=== PATIENT | male | born 1970 | race Caucasian/White ===

== ENCOUNTER 2022-09-21 07:56 | Emergency (ER) | payer SELFPAY ==
[2022-09-21 08:04] VITALS: BP 187/114; PULSE 88; RESP 22; TEMP 36.5; O2SAT 98; BMI 26.6
--- NOTE | 2022-09-21 08:11 | ECG_ITS ---
The [facility] Test Date: 2022-09-21 Pat Name: CONSTANCE RUTH Department: Room: - Gender: Male Ux Researcher: : 1970 Requested By: Order Number: [id number] Reading MD: CRISTY SINGH Measurements Intervals [place] Rate: 74 P: 4 AK: 146 QRS: 41 QRSD: 94 T: 46 QT: 416 QTc: 444 Interpretive Statements 1100 Sinus rhythm 9110 normal ECG No previous ECG available for comparison Electronically Signed On 09-22-2022 7:06:46 EDT by CRISTY SINGH
[2022-09-21] MEDS: 0.9 % SODIUM CHLORIDE 1,000 ML 1000 ML IV (08:24)
[2022-09-21] MEDS: FAMOTIDINE/PF 20 MG/2 ML VIAL IV (08:25)
[2022-09-21] MEDS: ONDANSETRON PF 4 MG/2 ML VIAL IV (08:25)
[2022-09-21] MEDS: KETOROLAC TROMETHAMINE 30 MG/ML VIAL 15 MG IVP (08:25)
--- NOTE | 2022-09-21 08:28 | ED.GENADUL1 ---
HPI - General Adult General Chief complaint: Abdominal Pain Stated complaint: vomiting/diarrhea Time Seen by Provider: 09/21/22 08:10 Source: patient Mode of arrival: walk-in History of Present Illness HPI narrative: The patient is coming to the ER with epigastric pain associated with nausea vomiting and diarrhea since almost 3 days, no other family members with similar symptoms the patient has not been able to keep anything down He denies having any regular abdominal pain after eating, he also mentioned that he have no fever no chills no cough no other complaints Related Data Previous Rx's Medication Instructions Recorded famotidine 20 mg tablet (Pepcid) 20 mg PO BID #10 tabs 09/21/22 ondansetron HCl 4 mg tablet 4 mg PO Q8H 24 hours #3 tabs 09/21/22 pantoprazole 40 mg tablet,delayed 40 mg PO DAILY #30 tabs 09/21/22 release (Protonix) Allergies Allergy/AdvReac Type Severity Reaction Status Date / Time acetaminophen [From Percocet] AdvReac Severe Vomiting Verified 09/21/22 08:37 codeine AdvReac Severe Vomiting Verified 09/21/22 08:37 hydrocodone [From Vicodin] AdvReac Severe Verified 09/21/22 08:37 oxycodone [From Percocet] AdvReac Severe Vomiting Verified 09/21/22 08:37 Review of Systems ROS Status of ROS 10 or more systems reviewed and unremarkable except as noted in history and below [facility] Medical History (Updated 09/21/22 @ 09:53 by Tricia Aly MD) Surgical History (Updated 09/21/22 @ 08:38 by Carlos Sheehan) Exam Narrative Exam Narrative: Nurses notes and vital signs reviewed and patient is not hypoxic. General: Well-appearing and in no apparent distress. Skin: Warm, dry, no pallor noted. No rash. Head: Normocephalic, atraumatic. Neck: Supple, non-tender. Eye: Pupils are equal, round and EOMI. No scleral icterus. Ears, Nose, Mouth, and Throat: TM are clear, no nasal mucosal hypertrophy. Oral mucosa is moist, no posterior oropharynx erythema, uvula is mid-line Cardiovascular: Regular Rate and Rhythm the patient does have a murmur that is systolic at the mitral area Respiratory: No accessory muscle use or respiratory distress. Lungs are clear to auscultation, no wheezing, rales or rhonchi Chest Wall: no tenderness Back: No midline thoracic or lumbar vertebral tenderness. No CVA tenderness Musculoskeletal: normal ROM, no calf or popliteal tenderness, no lower extremity edema/swelling GI: Abdomen is soft, non-distended. Normal bowel sounds. No masses appreciated. No tenderness to palpation. No rebound, guarding, or rigidity noted. Neurological: A&O x4. No cranial nerve dysfunction observed. No truncal ataxia. Moves all extremities. Sensation intact. Psychiatric: Cooperative and interactive. Normal mood and affect. Constitutional Vital Signs, click to edit/add: Last Vital Signs Temp 97.7 F 09/21/22 08:04 Pulse 87 09/21/22 10:07 Resp 20 09/21/22 10:07 BP 160/84 H 09/21/22 10:07 Pulse Ox 96 09/21/22 10:07 O2 Del Method Room Air 09/21/22 08:04 Course Vital Signs Vital signs: Vital Signs Temperature 97.7 F 09/21/22 08:04 Pulse Rate 88 09/21/22 08:04 Respiratory Rate 22 09/21/22 08:04 Blood Pressure 187/114 H 09/21/22 08:04 Pulse Oximetry 98 09/21/22 08:04 Oxygen Delivery Method Room Air 09/21/22 08:04 Temperature 97.7 F 09/21/22 08:04 Pulse Rate 87 09/21/22 10:07 Respiratory Rate 20 09/21/22 10:07 Blood Pressure 160/84 H 09/21/22 10:07 Pulse Oximetry 96 09/21/22 10:07 Oxygen Delivery Method Room Air 09/21/22 08:04 Medical Decision Making [facility] Narrative Medical decision making narrative: The patient EKG showing sinus rhythm with a heart rate of [address] elevation or depression The patient CBC and chemistry showed some mild leukocytosis and the chemistry was within normal It was noted that the patient blood pressure was elevated and he had this murmur and his heart evaluation mostly at the mitral level I did explain to the patient that he have to follow-up with his primary care doctor for further evaluation of his blood pressure CAT scan of the abdomen pelvis did not show any significant acute pathology except for possible enteritis The patient was feeling much better after initial treatment he was started on Pepcid and Protonix in addition to Zofran and supportive care The patient is to follow up with primary care physician in next 2-3 days or to return to the emergency department should any of the signs or symptoms worsen or new symptoms develop. The patient agrees with the following Diagnosis and Treatment plan and the patient will be discharged home. Lab Data Labs: Lab Results 09/21/22 Range/Units 08:21 WBC 15.6 H (4.0-11.0) 10^3/uL RBC 4.77 (4.70-6.10) 10^6/uL Hgb 14.3 (14.0-18.0) g/dL Hct 41.4 L (42.0-54.0) % MCV 86.8 (80.0-94.0) fL MCH 30.0 (25.9-34.0) pg MCHC 34.5 (29.9-35.2) g/dL RDW 13.3 (11.0-15.0) % Plt Count 384 (150-450) 10^3/uL MPV 9.0 L (9.5-13.5) fL Neut % (Auto) 86.9 H (43.0-75.0) % Lymph % (Auto) 6.2 L (20.5-60.0) % Lane % (Auto) 6.0 (1.7-12.0) % Eos % (Auto) 0.1 L (0.9-7.0) % Baso % (Auto) 0.4 (0.2-2.0) % Neut # (Auto) 13.6 H (1.4-6.5) 10^3/uL Lymph # (Auto) 1.0 L (1.2-3.8) 10^3/uL Lane # (Auto) 0.9 H (0.3-0.8) 10^3/uL Eos # (Auto) 0.0 (0.0-0.7) 10^3/uL Baso # (Auto) 0.1 (0.0-0.1) 10^3/uL Abs Immat Gran (auto) 0.06 H (0.00-0.03) 10^3/uL Imm/Tot Granulo (auto) 0.4 (0.0-0.5) % Sodium 139 (136-145) mmol/L Potassium 4.0 (3.5-5.1) mmol/L Chloride 102 (98-107) mmol/L Carbon Dioxide 25.0 (21.0-32.0) mmol/L Anion Gap 16.0 BUN 12.0 (7.0-18.0) mg/dL Creatinine 0.94 (0.70-1.30) mg/dL Est GFR ( Amer) >60 (>=60) Est GFR (Non-Af Amer) >60 (>=60) BUN/Creatinine Ratio 12.8 Glucose 167 H (74-106) mg/dL Calcium 9.3 (8.5-10.1) mg/dL Total Bilirubin 0.5 (0.2-1.0) mg/dL AST 10 L (15-37) U/L ALT 17 (16-63) U/L Alkaline Phosphatase 81 (46-116) U/L Troponin I High Sens 9.3 (4.0-76.1) pg/mL Total Protein 8.5 H (6.4-8.2) g/dL Albumin 3.9 (3.4-5.0) g/dL Globulin 4.6 g/dL Albumin/Globulin Ratio 0.8 Lipase 51.0 L (73.0-393.0) U/L Discharge Plan Discharge Chief Complaint: Abdominal Pain Clinical Impression: Gastritis, Gastroenteritis Patient Disposition: Home, Self-Care Time of Disposition Decision: 09:51 Condition: Good Mode of Transportation: Private Vehicle Prescriptions / Home Meds: New famotidine [Pepcid] 20 mg tablet 20 mg PO BID Qty: 10 0RF pantoprazole [Protonix] 40 mg tablet,delayed release (DR/EC) 40 mg PO DAILY Qty: 30 0RF ondansetron HCl 4 mg tablet 4 mg PO Q8H 1 Days Qty: 3 0RF Instructions: Gastritis (ED), Gastroenteritis (ED) Stand Alone Forms: Portal Instructions Referrals: Physician,Non-Staff, MD [Primary Care Provider] - 1 week Discharge Date/Time: 09/21/22 10:12
[2022-09-21 08:31] LABS: Basophils Absolute Auto 0.1 10^3/uL (0.0-0.1); Basophils Percent Auto 0.4 % (0.2-2.0); Eosinophils Percent Auto 0.1 % (0.9-7.0); Hematocrit 41.4 % (42.0-54.0); Hemoglobin 14.3 g/dL (14.0-18.0); Immature Granulocytes Abs Auto 0.06 10^3/uL (0.00-0.03); Immature Granulocytes Pct Auto 0.4 % (0.0-0.5); Lymphocytes Percent Auto 6.2 % (20.5-60.0); Mean Corpuscular HGB Conc 34.5 g/dL (29.9-35.2); Mean Corpuscular Volume 86.8 fL (80.0-94.0); Monocytes Absolute Auto 0.9 10^3/uL (0.3-0.8); Neutrophils Absolute Auto 13.6 10^3/uL (1.4-6.5); Neutrophils Percent Auto 86.9 % (43.0-75.0); Platelet Count 384 10^3/uL (150-450); Red Blood Count 4.77 10^6/uL (4.70-6.10); Red Cell Distribution Width 13.3 % (11.0-15.0); White Blood Count 15.6 10^3/uL (4.0-11.0)
[2022-09-21 08:50] LABS: Alanine Aminotransferase 17 U/L (16-63); Albumin Globulin Ratio 0.8; Albumin Level 3.9 g/dL (3.4-5.0); Alkaline Phosphatase 81 U/L (46-116); Aspartate Amino Transferase 10 U/L (15-37); BUN Creatinine Ratio 12.8; Bilirubin Total 0.5 mg/dL (0.2-1.0); Calcium 9.3 mg/dL (8.5-10.1); Chloride 102 mmol/L (98-107); Estimated GFR (African America >60 (>=60); Estimated GFR (Non-African Ame >60 (>=60); Globulin 4.6 g/dL; Glucose 167 mg/dL (74-106); Sodium 139 mmol/L (136-145); Total Protein 8.5 g/dL (6.4-8.2)
[2022-09-21 08:52] LABS: Troponin I High Sensitivity 9.3 pg/mL (4.0-76.1)
--- NOTE | 2022-09-21 09:14 | CT_ITS ---
The [address] [address] Patient Name: CONSTANCE RUTH MRN: [id number] date: 1970 Sex: M Assigned Patient Location: ER Current Patient Location: ER Accession/Order Number: [id number] Exam Date: 09/21/2022 09:20 Report Date: 09/21/2022 09:40 At the request of: YONY BATRES Procedure: CT abdomen pelvis wo con EXAM: CT abdomen pelvis wo con HISTORY: abd pain COMPARISON: None. TECHNIQUE: Axial CT images were obtained of the abdomen and pelvis without and with intravenous contrast. Multiplanar reconstructions were performed. ABDOMEN/PELVIS FINDINGS: Lower Chest: Unremarkable. Liver: Normal nonenhanced appearance and contour. Biliary/Gallbladder: Unremarkable. Pancreas: Unremarkable. Spleen: Multiple punctate calcifications are present in the spleen, likely due to remote granulomatous disease. Adrenal Glands: Unremarkable. Kidneys: Unremarkable. Gastrointestinal/Peritoneum: There is moderate wall thickening present in a long segment of the terminal ileum with hazy fat stranding of the adjacent mesentery. There is a short segment of bowel dilation is well measuring 2.6 cm in diameter. A small volume of free fluid is present in the abdomen. The appendix is unremarkable. Vascular: Mild scattered atherosclerotic calcifications are present. Lymph Nodes: No enlarged lymph nodes by CT size criteria. Pelvic Organs: Unremarkable. Bladder: Unremarkable. Bones: No acute osseous abnormality. Soft tissues: Unremarkable. CT/CT abdomen pelvis wo con IMPRESSION: 1. Abnormal wall thickening and inflammatory changes of a long segment of the terminal ileum, possibly due to infectious or inflammatory enteritis. 2. Small volume of free fluid in the abdomen and pelvis. Electronically authenticated by: RADHA WASHINGTON Date: 09/21/2022 09:40
[2022-09-21 10:07] VITALS: BP 160/84; PULSE 87; RESP 20; O2SAT 96
== END 2022-09-21 10:12 | disposition home or self-care (01) ==
PROVIDERS: Emergency Provider Emergency Medicine
DX: K29.70 Gastritis, unspecified, without bleeding (principal); K52.9 Noninfective gastroenteritis and colitis, unspecified
CPT/HCPCS: 36415; 74176; 80053; 81003; 83690; 84484; 85025; 93005; 96374; 96375; 99285

== ENCOUNTER 2023-01-16 18:25 | Emergency (ER) | payer SELFPAY ==
[2023-01-16 18:31] VITALS: BP 127/81; PULSE 104; RESP 20; TEMP 36.6; O2SAT 96; BMI 25.1
--- NOTE | 2023-01-16 18:40 | CT_ITS ---
The [address] [address] Patient Name: CONSTANCE RUTH MRN: [id number] date: 1970 Sex: M Assigned Patient Location: ER Current Patient Location: ER Accession/Order Number: [id number] Exam Date: 01/16/2023 19:55 Report Date: 01/16/2023 20:52 At the request of: TROY LAN Procedure: CT abdomen pelvis w con EXAM: CT abdomen pelvis w con HISTORY: generalized abdominal pain COMPARISON: 09/21/2022 TECHNIQUE: CT of abdomen and pelvis with intravenous contrast. Dose reduction techniques were achieved by using automated exposure control and/or adjustment of mA and/or kV according to patient size and/or use of iterative reconstruction technique. FINDINGS: TUBES AND IMPLANTS: None. LOWER CHEST: Mild cardiomegaly. Patchy groundglass opacities with interlobular septal thickening. ABDOMEN and PELVIS ABDOMINAL WALL AND SOFT TISSUES: Unremarkable. BONES: No suspicious lesions. Multilevel degenerative changes of the spine. ARTERIES: Mild to moderate aortoiliac atherosclerosis without aneurysm VEINS: Unremarkable. LYMPH NODES: Unremarkable. PERITONEUM/ RETROPERITONEUM: Small amount of free fluid BOWEL: Severe wall thickening of the terminal ileum and distal ileum with regions of stenoses and dilatation APPENDIX: Unremarkable LIVER: No suspicious lesions within the [id number] GALLBLADDER: Unremarkable. BILE DUCTS: Not dilated SPLEEN: Calcified granulomata PANCREAS: Unremarkable. ADRENALS: Unremarkable. KIDNEYS/ URETERS: Unremarkable. REPRODUCTIVE ORGANS: Unremarkable URINARY BLADDER: Unremarkable. Contrast seen within the bladder on delayed imaging. CT/CT abdomen pelvis w con IMPRESSION: Severe wall thickening of the terminal ileum and distal ileum with regions of stenosis and dilatation concerning for inflammatory stricturing and mild associated obstruction. This most likely related to an inflammatory or infectious etiology. Small amount of free intraperitoneal fluid likely reactive. Mild cardiomegaly. Patchy groundglass opacities with interlobular septal thickening. These findings suggest mild pulmonary interstitial edema, infectious etiology can considered in the right clinical setting. Electronically authenticated by: NITESH STEEL Date: 01/16/2023 20:52
--- NOTE | 2023-01-16 18:41 | ED.ABDPAIN1 ---
HPI - Abdominal Pain General Chief Complaint: Abdominal Pain Stated Complaint: Abdominal Pain Time Seen by Provider: 01/16/23 18:36 Source: patient Mode of arrival: walk-in History of Present Illness HPI narrative: 2 days of generalized abdominal cramping associated with nausea and vomiting. No fever or chills. had similar symptoms but hers only last about 8 hours. His symptoms have persisted since onset. No urinary symptosm or flank pain. No recent injury to the abdomen, trauma or fall. No meds taken at home for pain. He said narcotics upset his stomach. Related Data Home Medications Medication Instructions Recorded Confirmed lisinopril 10 mg tablet 10 mg PO DAILY 01/16/23 01/16/23 Previous Rx's Medication Instructions Recorded famotidine 20 mg tablet (Pepcid) 20 mg PO BID #10 tabs 09/21/22 ondansetron HCl 4 mg tablet 4 mg PO Q8H 24 hours #3 tabs 09/21/22 pantoprazole 40 mg tablet,delayed 40 mg PO DAILY #30 tabs 09/21/22 release (Protonix) Allergies Allergy/AdvReac Type Severity Reaction Status Date / Time acetaminophen [From Percocet] AdvReac Severe Vomiting Verified 09/21/22 08:37 codeine AdvReac Severe Vomiting Verified 09/21/22 08:37 hydrocodone [From Vicodin] AdvReac Severe Verified 09/21/22 08:37 oxycodone [From Percocet] AdvReac Severe Vomiting Verified 09/21/22 08:37 PFSH PFSH Medical History (Updated 01/16/23 @ 18:58 by Umberto Skaggs) No pertinent past medical history ?Z78.9 - Other specified health status (ICD-10) Surgical History (Updated 09/21/22 @ 08:38 by Carlos Sheehan) No pertinent past surgical history ?Z78.9 - Other specified health status (ICD-10) Exam Narrative Exam Narrative: Nurses notes and vital signs reviewed and patient is not hypoxic. afebrile General: uncomfortable. Skin: Warm, dry, no pallor noted. Psoriatic rash to the lower back. Head: Normocephalic, atraumatic. Eye: Pupils are equal, round and EOMI. No scleral icterus. Ears, Nose, Mouth, and Throat: Oral mucosa is dry Cardiovascular: Regular Rate and Rhythm without murmur, gallop or rub. Respiratory: No accessory muscle use or respiratory distress. Lungs are clear to auscultation, no wheezing, rales or rhonchi Back: No CVA tenderness Musculoskeletal: normal ROM GI: Abdomen is soft, non-distended. Normal bowel sounds. No masses appreciated. Diffuse tenderness to palpation. No rebound, guarding, or rigidity noted. Neurological: A&O x4. No cranial nerve dysfunction observed. No truncal ataxia. Moves all extremities. Sensation intact. Psychiatric: Cooperative and interactive. Normal mood and affect. Constitutional Vital Signs, click to edit/add: Last Vital Signs Temp 97.9 F 01/16/23 18:31 Pulse 104 H 01/16/23 18:31 Resp 20 01/16/23 18:31 BP 127/81 01/16/23 18:31 Pulse Ox 96 01/16/23 18:31 O2 Del Method Room Air 01/16/23 18:31 Course Vital Signs Vital signs: Vital Signs Temperature 97.9 F 01/16/23 18:31 Pulse Rate 104 H 01/16/23 18:31 Respiratory Rate 20 01/16/23 18:31 Blood Pressure 127/81 01/16/23 18:31 Pulse Oximetry 96 01/16/23 18:31 Oxygen Delivery Method Room Air 01/16/23 18:31 Temperature 97.9 F 01/16/23 18:31 Pulse Rate 104 H 01/16/23 18:31 Respiratory Rate 20 01/16/23 18:31 Blood Pressure 127/81 01/16/23 18:31 Pulse Oximetry 96 01/16/23 18:31 Oxygen Delivery Method Room Air 01/16/23 18:31 MDM - Abdominal Pain MDM Narrative Medical decision making narrative: peripheral IV established and blood drawn and sent for testing. I also had them send urine for testing. CT scan of the abdomen pelvis with both oral and IV contrast was ordered to be obtained as well. The patient was ordered to receive IV Zofran, a liter of normal saline IV fluid and sublingual Levsin. Case discussed with Dr. Venegas at 7 PM shift change and he will follow-up on the labs and CT result then determine disposition of the patient. Discharge Plan Discharge Patient Disposition: Still a Patient
[2023-01-16] MEDS: ONDANSETRON PF 4 MG/2 ML VIAL IV ×2 (18:50→19:42)
[2023-01-16] MEDS: 0.9 % SODIUM CHLORIDE 1,000 ML 999 ML IV (18:50)
[2023-01-16] MEDS: HYOSCYAMINE SULFATE 0.125 MG TAB.SUBL SL (18:50)
[2023-01-16 19:12] VITALS: BP 132/82; PULSE 96; RESP 16; O2SAT 98
[2023-01-16 19:39] LABS: Basophils Absolute Auto 0.1 10^3/uL (0.0-0.1); Basophils Percent Auto 0.5 % (0.2-2.0); Eosinophils Absolute Auto 0.6 10^3/uL (0.0-0.7); Eosinophils Percent Auto 3.6 % (0.9-7.0); Hematocrit 41.2 % (42.0-54.0); Hemoglobin 13.9 g/dL (14.0-18.0); Immature Granulocytes Abs Auto 0.08 10^3/uL (0.00-0.03); Immature Granulocytes Pct Auto 0.5 % (0.0-0.5); Lymphocytes Absolute Auto 2.2 10^3/uL (1.2-3.8); Lymphocytes Percent Auto 12.2 % (20.5-60.0); Mean Corpuscular HGB Conc 33.7 g/dL (29.9-35.2); Mean Corpuscular Hemoglobin 30.2 pg (25.9-34.0); Mean Corpuscular Volume 89.6 fL (80.0-94.0); Mean Platelet Volume 9.1 fL (9.5-13.5); Monocytes Absolute Auto 1.4 10^3/uL (0.3-0.8); Monocytes Percent Auto 7.9 % (1.7-12.0); Neutrophils Absolute Auto 13.3 10^3/uL (1.4-6.5); Neutrophils Percent Auto 75.3 % (43.0-75.0); Platelet Count 389 10^3/uL (150-450); Red Cell Distribution Width 13.6 % (11.0-15.0); White Blood Count 17.7 10^3/uL (4.0-11.0)
[2023-01-16] MEDS: MORPHINE SULFATE 4 MG/ML VIAL 2 MG IV (19:42)
[2023-01-16 19:59] LABS: Alanine Aminotransferase 19 U/L (16-63); Albumin Globulin Ratio 0.9; Albumin Level 3.8 g/dL (3.4-5.0); Alkaline Phosphatase 72 U/L (46-116); Aspartate Amino Transferase 10 U/L (15-37); BUN Creatinine Ratio 8.5; Bilirubin Total 0.4 mg/dL (0.2-1.0); Calcium 8.8 mg/dL (8.5-10.1); Carbon Dioxide 26.6 mmol/L (21.0-32.0); Chloride 96 mmol/L (98-107); Estimated GFR (African America >60 (>=60); Estimated GFR (Non-African Ame >60 (>=60); Globulin 4.2 g/dL; Glucose 137 mg/dL (74-106); Potassium 3.6 mmol/L (3.5-5.1); Sodium 133 mmol/L (136-145)
[2023-01-16 20:46] LABS: Bilirubin Urine NEGATIVE (NEGATIVE); Blood Urine TRACE-I (NEGATIVE); Clarity Urine CLEAR (CLEAR); Color Urine LT. YELLOW (YELLOW); Glucose Urine UA NEGATIVE (NEGATIVE); Ketones Urine NEGATIVE (NEGATIVE); Leukocyte Esterase Urine NEGATIVE (NEGATIVE); Nitrite Urine NEGATIVE (NEGATIVE); Protein Urine NEGATIVE (NEG/TRACE); Specific Gravity Urine <=1.005 (1.005-1.025); Urobilinogen Urine 0.2 EU/dL (0.2-1.0)
[2023-01-16 20:51] LABS: Urine Microscopic Indicated NO
[2023-01-16 21:09] VITALS: BP 128/73; PULSE 88; RESP 16; TEMP 36.6; O2SAT 97
[2023-01-16] MEDS: MORPHINE SULFATE 4 MG/ML VIAL IV (22:09)
[2023-01-16] MEDS: CIPROFLOXACIN IN 5 % DEXTROSE 400 MG/200 ML PIGGYBACK 200 MG IV (22:09)
[2023-01-16 22:17] VITALS: BP 120/70; PULSE 76; RESP 16; O2SAT 94
[2023-01-16] MEDS: PROMETHAZINE HCL 25 MG/ML VIAL 12.5 MG IV (22:57)
[2023-01-16] MEDS: METRONIDAZOLE/SODIUM CHLORIDE 500 MG/100 ML PREMIX 100 MG IV (23:06)
[2023-01-16 23:12] VITALS: BP 123/76; PULSE 96; RESP 16; O2SAT 95
[2023-01-17 00:19] VITALS: BP 114/60; PULSE 76; RESP 16; O2SAT 96
[2023-01-17] MEDS: MORPHINE SULFATE 4 MG/ML VIAL IV (00:57)
--- NOTE | 2023-01-17 01:07 | PC.NURSE ---
Transport here for patient.
--- NOTE | 2023-01-17 01:16 | PC.NURSE ---
Report to Nidia at [facility] [phone].
== END 2023-01-17 01:20 | disposition short-term general hospital (02) ==
PROVIDERS: Emergency Medicine; Emergency Provider Emergency Medicine; PCP Nurse Practitioner Family
DX: K52.9 Noninfective gastroenteritis and colitis, unspecified (principal); Z79.899 Other long term (current) drug therapy
CPT/HCPCS: 36415; 74177; 80053; 81003; 83690; 85025; 96365; 96367; 96375; 96376; 99285; Q9966; Q9967

== ENCOUNTER 2023-04-10 14:48 | Outpatient (OUT) | payer SELFPAY ==
--- NOTE | 2023-04-10 15:53 | CA_ITS ---
Patient Name: CONSTANCE RUTH MR#: [id number] : 1970 Exam Date: 04/10/2023 Ordering Doctor: CALVIN RANDALL M.D. ECHOCARDIOGRAM REPORT PROCEDURE: CA ECHO DOPPLER COMPLETE INDICATIONS: Nonrheumatic mitral valve insufficiency. COMPARISON: None. DESCRIPTION: COMPLETE ECHOCARDIOGRAM Real-time transthoracic echocardiography with 2D, M-mode, spectral and color flow Doppler performed. QUALITY: Technical quality was good. LEFT VENTRICLE: Normal chamber size. Mild concentric left ventricular hypertrophy. LV EF: Global left ventricular systolic function is lower normal limits; visually estimated ejection fraction is 50 to 55%. Calculated left ventricular ejection fraction is 51%. DIASTOLIC: Unable to assess degree of diastolic dysfunction. ATRIAL SEPTUM: Inadequately seen. LEFT ATRIUM: Severe dilatation. RIGHT ATRIUM: Mild dilatation. RIGHT VENTRICLE: Normal chamber size. Normal right ventricular systolic function. TRICUSPID VALVE: Normal mobility and thickness. No stenosis with trivial regurgitation. No evidence of pulmonary hypertension. RVSP 31mmHg MITRAL VALVE: Normal mobility and thickness. No evidence of mitral valve stenosis. There is no mitral annular calcification. Moderate to severe mitral regurgitation. AORTIC VALVE: Normal trileaflet appearance. No visible sclerosis. Normal leaflet mobility. No evidence of aortic valve stenosis. No aortic regurgitation. AORTIC ROOT: Mildly dilated. Measuring 3.8cm. PULMONIC VALVE: Normal thickness and mobility. No stenosis. No regurgitation. PERICARDIUM: Anterior free space; trivial effusion versus fat pad. IVC: Collapses with inspirations. Normal size. CONCLUSION: 1. Global left ventricular systolic function is lower normal limits; visually estimated ejection fraction is 50 to 55% 2. Normal right ventricular size and systolic function 3. Mildly increased left ventricular wall thickness 4. Biatrial enlargement 5. Moderate to severe mitral regurgitation; recommend transesophageal echocardiography to further evaluate the mitral valve and severity of regurgitation 6. The aortic root is mildly dilated 7. Anterior free space; trivial effusion versus fat pad Adult Echocardiography Procedure Report Left Ventricle LVEDD (3.7 - 5.6 cm): 5.38 cm LVESD (2.2 - 4.0 cm): 3.88 cm LVIVS thickness (0.6 - 1.2 cm): 1.15 cm LVPW thickness (0.5 - 1.0 cm): 1.13 cm e': 0.11 m/s E - e': 12.59 LVOT Max Gradient: 3.81 mm[Hg], 3.67 mm[Hg] LVOT Area (cm2): 0.97 m/s Peak Velocity (LVOT): 0.98 m/s, 0.96 m/s Mean Velocity (LVOT): 0.66 m/s LVOT Diameter 2.73 cm Left Ventricular Ejection Fraction: 50.84 % Left Atrium LA Volume Index (2D A2C): 69.90 ml/m2 Left Atrium Systolic Dimension: 4.98 cm Mitral Valve MV E to A Ratio: 0.89 Mitral Valve A-Wave Peak Velocity: 1.60 m/s Mitral Valve E-Wave Peak Velocity: 1.43 m/s Right Ventricle RV Internal Diastolic Dimension: 3.20 cm Aorta AO Root Diam: 3.82 cm Ascending Ao Diam: 3.57 cm Aortic Valve AoV Area (Peak Dionte): 4.10 cm2, 3.97 cm2, 4.24 cm2 AoV Area (VTI): 4.80 cm2, 4.54 cm2, 5.08 cm2 Peak Velocity(Antegrade Flow): 1.44 m/s, 1.33 m/s Peak Gradient(Antegrade Flow): 8.32 mm[Hg], 7.03 mm[Hg] Mean Velocity(Antegrade Flow): 1.01 m/s, 0.95 m/s Mean Gradient(Antegrade Flow): 4.67 mm[Hg], 4.11 mm[Hg] Velocity Time Integral: 25.44 cm, 23.50 cm Tricuspid Valve Peak Velocity (Regurgitant Flow): 2.16 m/s, 2.34 m/s, 2.67 m/s Pulmonic Valve Mean Gradient: 2.15 mm[Hg], 1.80 mm[Hg], 1.78 mm[Hg] Mean Velocity: 0.68 m/s, 0.62 m/s, 0.62 m/s Peak Velocity: 0.96 m/s Peak Gradient: 4.10 mm[Hg], 3.47 mm[Hg], 3.47 mm[Hg] Right Atrium Right Atrium Systolic Pressure: 40.82 ml, 40.82 ml Dictated by: Ramses Shrestha M.D. on 04/10/2023 at 16:19 Approved by: Ramses Shrestha M.D. on 04/10/2023 at 16:26
== END 2023-04-10 14:49 | disposition home or self-care (01) ==
PROVIDERS: PCP Nurse Practitioner Family; Visit Provider Internal Medicine Cardiovascular Disease
DX: I34.0 Nonrheumatic mitral (valve) insufficiency (principal)
CPT/HCPCS: 93306

== ENCOUNTER 2024-10-11 08:10 | Outpatient (OUT) | payer BC, SELFPAY ==
--- OUTSIDE RECORDS SUMMARY | 2024-10-11 08:18 | XMS_ITS | CCD ---
Author Organization [facility] Care Team Providers Care Campus Security Officer Name Role Phone MIRIAM PEREZ Consulting Unavailable [facility], DR AGUILAR Primary Care Unavailable SANJAY FOSTER Attending Unavailable EITAN ., SANJAY Admitting Unavailable Michelle Lance Referring Unavailable Michelle Lance Attending Unavailable Michelle Lance Primary Care Unavailable Casi, Michelle Anastasiya Admitting Unavailable LLOYD GALINDO Referring Unavailable DANIELA DE LOS SANTOS Admitting Unavailable DANIELA DE LOS SANTOS Attending Unavailable ONEAL ELDRIDGE Attending Unavailable VIOLET MARIE Referring Unavailable LEVI CEE Referring Unavailable JAY SALAS Attending Unavailable Allergies Allergy Classification Reported Allergen(s) Allergy Type Date of Onset Reaction(s) Facility (1 source) Acetaminophen / HYDROcodone Drug Allergy 03-08-[address] [facility] Repository (1 source) Acetaminophen / oxyCODONE Drug Allergy 03-18-[address] [facility] Repository (2 sources) Azithromycin; Translations: [AZITHROMYCIN] Drug Allergy 01-17-[address] [facility] Repository (2 sources) Codeine; Translations: [CODEINE] Drug Allergy 03-08-[address] [facility] Repository (1 source) oxyCODONE Drug Allergy 03-18-[address] [facility] Repository (1 source) Penicillin Drug Allergy 03-17-[address] [facility] Repository (1 source) Acetaminophen / HYDROcodone; Translations: [HYDROCODONE-ACETA MINOPHEN] Drug Allergy 10-27-2022 [facility] Repository (1 source) Acetaminophen / oxyCODONE; Translations: [OXYCODONE-ACETAMI NOPHEN] Drug Allergy 10-27-2022 [facility] Repository Problems Problem Classification Problem Date Documented Da te Episodic/Chronic Abdominal pain (4 sources) Unspecified abdominal pain; Translations: [Generalized abdominal pain] Onset: 01-17-2023 Episodic Headache; including migraine (1 source) Migraine, unspecified, not intractable, without status migrainosus; Translations: [MIGRAINE UNS NOT INTRACT W/O SM] Onset: 06-28-2022 Chronic Headache; including migraine (3 sources) Headache; including migraine; Translations: [HEADACHE UNSPECIFIED] Onset: 06-26-2022 Heart valve disorders (1 source) Cardiac murmur, unspecified; Translations: [Cardiac murmur, unspecified] Onset: 10-07-2022 Episodic Other aftercare (1 source) Other parts counterman (current) drug therapy; Translations: [OTH ALF CURRENT DRUG THERAPY] Onset: 06-28-2022 Episodic Substance-related disorders (1 source) Nicotine dependence, cigarettes, uncomplicated; Translations: [NICOTINE DEPEND CIGARETTES UNCOMP] Onset: 06-28-2022 Chronic Results Test Name Value Interpretation Reference Range Facility 36on 02-08-2023 36 Patient returns call after receiving letter to call for results. Notified of results and need for follow up CLN in 2-6 months with 2 day prep. Voiced understanding Normal [facility] 30on 01-18-2023 30 Problem: Pain - Adul t Goal: Verbalizes/displays adequate comfort level or baseline comfort level Outcome: Progressing Problem: Safety - Adult Goal: Free from fall injury Outcome: Progressing Problem: Resident experiences pain/discomfort Goal: I will maintain an acceptable level of pain Outcome: Progressing The patient is Moderately Stable - Low risk of patient condition declining or worsening The patient's goals for the shift include comfort The clinical goals for the shift include comfort Normal [facility] BASIC METABOLIC PANELon 11-2 Anion gap [Moles/Vol] 12 mmol/L Normal 7-20 [facility] Comment on above: Performed By: #### L [id number] #### [facility] ([facility]) [address] [place] [address] Calcium [Mass/Vol] 8.8 mg/dL Normal 8.6-10.3 [facility] Comment on above: Performed By: #### L [id number] #### [facility] ([facility]) [address] [place] [address] Chloride [Moles/Vol] 102 mmol/L Normal 98-107 [facility] Comment on above: Performed By: #### L [id number] #### [facility] ([facility]) [address] [place] [address] CO2 [Moles/Vol] 25 mmol/L Normal 21-31 [facility] Comment on above: Performed By: #### L [id number] #### [facility] ([facility]) [address] [place] [address] Creatinine [Mass/Vol] 0.81 mg/dL Normal 0.70-1.30 [facility] Comment on above: Performed By: #### L [id number] #### [facility] ([facility]) [address] [place] [address] GLOMERULAR FILTRATION RATE ML/MIN/1.73 SQ M.PREDICTED 105.4 mL/min/1.73m*2 Normal >60.0 [facility] Comment on above: Result Comment: The [facility]???s estimated glomerular filtration rate (eGFR) will no longer include consideration of race in its calculation. The National Kid[employer] Foundation???s eGFR Task Force developed new recommendations for the estimation of the glomerular filtration rate in the [place] They recommend immediate implementation of the new equation refit without the race variable in all laboratories because the calculation does not include race. In addition to not including race in the calculation and reporting, it included diversity in its development, and has acceptable performance characteristics and potential consequences that do not disproportionately affect any one group of individuals. Performed By: #### L [id number] #### [facility] ([facility]) [address] [place] [address] Glucose [Mass/Vol] 93 mg/dL Normal 70-100 [facility] Comment on above: Performed By: #### L [id number] #### [facility] ([facility]) [address] [place] [address] Potassium [Moles/Vol] 3.6 mmol/L Normal 3.5-5.1 [facility] Comment on above: Performed By: #### L [id number] #### [facility] [address] [place] [address] Sodium [Moles/Vol] 135 mmol/L Low 136-145 [facility] Comment on above: Performed By: #### L [id number] #### [facility] ([facility]) [address] [place] [address] Urea nitrogen [Mass/Vol] 12 mg/dL Normal 7-25 [facility] Comment on above: Performed By: #### L [id number] #### [facility] ([facility]) [address] [place] [address] UREA NITROGEN/CREATININE (MASS RATIO) IN SER/PLAS 14.8 Normal [facility] Comment on above: Performed By: #### L [id number] #### [facility] ([facility]) [address] [place] [address] CALPROTECTIN STOOLon 023 CALPROTECTIN, FECAL 30 ug/g Normal <=49 [facility] Comment on above: Result Comment: REFE RENCE INTERVAL: Calprotectin, Fecal by Immunoassay Less than 50 ug/g.........Normal 50-120 ug/g...............Borderline elevated, test should be re-evaluated in 4-6 weeks. 121 ug/g or greater.......Elevated Performed By: [employer] [address] [place] [id number] Piece Dye Worker: Joe Cummins MD, PhD CLIA Number: [id number] Performed By: #### L [id number] #### [facility] ([facility] [address] [place] [address] CBC WITH AUTO DIFFERENTIALon 01-18-2023 Basophils (Bld) [#/Vol] 0.05 10*3/uL Normal 0.00-0.20 [facility] Comment on above: Performed By: #### L [id number] #### [facility] ([facility] [address] [place] [address] Basophils/100 WBC (Bld) 0.5 % Normal 0.0-1.0 [facility] Comment on above: Performed By: #### L [id number] #### [facility] ([facility]) [address] [place] [address] Eosinophils (Bld) [#/Vol] 0.37 10*3/uL Normal 0.00-0.50 [facility] Comment on above: Performed By: #### L [id number] #### [facility] ([facility]) [address] [place] [address] Eosinophils/100 WBC (Bld) 3.5 % Normal 0.0-6.0 [facility] Comment on above: Performed By: #### L [id number] #### [facility] ([facility] [address] [place] [address] Erythrocyte distribution width (RBC) [Ratio] 13.6 % Normal 11.5-15.0 [facility] Comment on above: Performed By: #### L [id number] #### [facility] ([facility]) [address] [place] [address] ERYTHROCYTE MEAN CORPUSCULAR HEMOGLOBIN CONCENTRATION (G/DL) BY AUTOMATED 34.4 g/dL Normal 32.0-35.0 [facility] Comment on above: Performed By: #### L [id number] #### [facility] ([facility]) [address] [place] [address] Hematocrit (Bld) [Volume fraction] 34.9 % Low 39.0-55.0 [facility] Comment on above: Performed By: #### L [id number] #### [facility] ([facility]) [address] [place] [address] Hemoglobin (Bld) [Mass/Vol] 12.0 g/dL Low 13.0-17.0 [facility] Comment on above: Performed By: #### L [id number] #### [facility] ([facility]) [address] [place] [address] Immature granulocytes (Bld) [#/Vol] 0.02 10*3/uL Normal 0.00-0.20 [facility] Comment on above: Performed By: #### L [id number] #### [facility] ([facility]) [address] [place] [address] Immature granulocytes/100 WBC (Bld) 0.2 % Normal 0.0-1.0 [facility] Comment on above: Performed By: #### L [id number] #### [facility] ([facility]) [address] [facility] [place] [address] Lymphocytes (Bld) [#/Vol] 1.80 10*3/uL Normal 1.20-4.00 [facility] Comment on above: Performed By: #### L [id number] #### [facility] ([facility]) [address] [place] [address] Lymphocytes/100 WBC (Bld) 17.2 % Low 20.0-45.0 [facility] Comment on above: Performed By: #### L [id number] #### [facility] ([facility]) [address] [facility] [place] [address] MCH (RBC) [Entitic mass] 30.6 pg Normal 27.0-33.0 [facility] Comment on above: Performed By: #### L [id number] #### [facility] ([facility]) [address] [place] [address] MCV (RBC) [Entitic vol] 89.0 fL Normal 82.0-98.0 [facility] Comment on above: Performed By: #### L [id number] #### [facility] ([facility]) [address] [facility] [place] [address] Monocytes (Bld) [#/Vol] 1.06 10*3/uL High 0.10-1.00 [facility] Comment on above: Performed By: #### L [id number] #### [facility] ([facility]) [address] [facility] [place] [address] Monocytes/100 WBC (Bld) 10.1 % Normal 5.0-12.0 [facility] Comment on above: Performed By: #### L [id number] #### [facility] ([facility]) [address] [place] [address] Neutrophils (Bld) [#/Vol] 7.17 10*3/uL Normal 1.60-7.60 [facility] Comment on above: Performed By: #### L [id number] #### [facility] ([facility]) [address] [place] [address] Neutrophils/100 WBC (Bld) 68.5 % Normal 40.0-72.0 [facility] Comment on above: Performed By: #### L [id number] #### [facility] ([facility]) [address] [place] [address] NRBC (PER 100 WBCS) BY AUTOMATED COUNT 0.0 % Normal 0 [facility] Comment on above: Performed By: #### L [id number] #### [facility] ([facility]) [address] [place] [address] PLATELETS (10*3/UL) IN BLOOD AUTOMATED COUNT 345 10*3/uL Normal 150-400 [facility] Comment on above: Performed By: #### L [id number] #### [facility] ([facility]) [address] [place] [address] RBC (Bld) [#/Vol] 3.92 10*6/uL Low 4.20-5.70 [facility] Comment on above: Performed By: #### L [id number] #### [facility] ([facility]) [address] [place] [address] WBC (Bld) [#/Vol] 10.47 10*3/uL Normal 4.00-10.60 [facility] Comment on above: Performed By: #### L [id number] #### [facility] ([facility]) [address] [place] [address] CLOSTRIDIOIDES DIFFICILE DNA AMPLIFICATIONon 01-18-2023 CLOSTRIDIOIDES DIFFICILE (TOXIN A/B) Negative Normal Negative [facility] Comment on above: Order Comment: Jeweli christo methodology is an in vitro diagnostic test for the direct, qualitative detection of the Clostridioides difficile Toxin A gene (tcdA) in unformed stool specimens of patients suspected of having Clostridioides difficile-infection (CDI). The [place] C. difficile Assay is intended for use as an aid in diagnosis of CDI. The assay utilizes helicase-dependent amplification (HDA) for the amplification of a highly conserved fragment of the Toxin A gene sequence.Testing methodology is an in vitro diagnostic test for the direct, qualitative detection of the Clostridioides difficile Toxin A gene (tcdA) in unformed stool specimens of patients suspected of having Clostridioides difficile-infection (CDI). The [place] C. difficile Assay is intended for use as an aid in diagnosis of CDI. The assay utilizes helicase-dependent amplification (HDA) for the amplification of a highly conserved fragment of the Toxin A gene sequence. Performed By: #### L [id number] #### [facility] ([facility]) [address] [place] [address] DSon 01-18-2023 DS Admission Admitted 01/17/2023 for Ileitis Discharge Diagnosis Abdominal pain Discharge Disposition Home or Self Care Discharge Medications Your medication list CONTINUE taking these medications Instructions Last Dose Given Next Dose Due cetirizine-pseudoephedr ine 5-120 mg 12 hr tablet Commonly known as: ZyrTEC-D lansoprazole [address] capsule Commonly known as: Prevacid lisinopril 10 mg tablet Take 1 tablet (10 mg) by mouth in the morning. SUMAtriptan 6 mg/0.5 mL injection Commonly known as: Imitrex Activity Normal activity as tolerated Diet Allergies Azithromycin, Codeine, Hydrocodone-acetaminoph en, and Oxycodone-acetaminophen Hospital Course Treated medically and resolved Pertinent Physical Exam At Time of Discharge Physical Exam Lab Results Labs Reviewed COMPREHENSIVE METABOLIC PANEL - Abnormal Result Value Sodium 135 (*) Potassium 3.9 Chloride 103 CO2 28 Anion Gap 8 BUN 9 Creatinine 0.81 BUN/Creatinine Ratio 11.1 Glucose 104 (*) Calcium 9.2 AST 10 (*) ALT (SGPT) 9 Alkaline Phosphatase 59 Total Protein 6.9 Albumin 4.2 Total Bilirubin 0.6 eGFR 105.4 MAGNESIUM - Abnormal Magnesium 1.7 (*) CBC WITH AUTO DIFFERENTIAL - Abnormal Auto WBC 12.11 (*) RBC 4.27 Hemoglobin 13.0 Hematocrit 37.8 (*) MCV 88.5 MCH 30.4 MCHC 34.4 RDW 13.8 Neutrophils Relative 60.8 Lymphocytes Relative 23.4 Monocytes Relative 10.2 Eosinophils Relative 4.8 Basophils Relative 0.4 Neutrophils Absolute 7.36 Lymphocytes Absolute 2.83 Monocytes Absolute 1.24 (*) Eosinophils Absolute 0.58 (*) Basophils Absolute 0.05 Platelets 346 nRBC % 0.0 Immature Granulocytes Relative 0.4 Immature Granulocytes Absolute 0.05 C-REACTIVE PROTEIN - Abnormal CRP 26.6 (*) BASIC METABOLIC PANEL - Abnormal Sodium 135 (*) Potassium 3.6 Chloride 102 CO2 25 BUN 12 Creatinine 0.81 Glucose 93 Calcium 8.8 Anion Gap 12 eGFR 105.4 BUN/Creatinine Ratio 14.8 PHOSPHORUS - Abnormal Phosphorus 2.4 (*) MAGNESIUM - Abnormal Magnesium 1.6 (*) CBC WITH AUTO DIFFERENTIAL - Abnormal Auto WBC 10.47 RBC 3.92 (*) Hemoglobin 12.0 (*) Hematocrit 34.9 (*) MCV 89.0 MCH 30.6 MCHC 34.4 RDW 13.6 Neutrophils Relative 68.5 Lymphocytes Relative 17.2 (*) Monocytes Relative 10.1 Eosinophils Relative 3.5 Basophils Relative 0.5 Neutrophils Absolute 7.17 Lymphocytes Absolute 1.80 Monocytes Absolute 1.06 (*) Eosinophils Absolute 0.37 Basophils Absolute 0.05 Platelets 345 nRBC % 0.0 Immature Granulocytes Relative 0.2 Immature Granulocytes Absolute 0.02 ENTERIC BACTERIA, LIMITED PARASITE DNA PANEL - Normal Shiga-like toxin-producing E. coli (STEC) stx1/stx2 Negative Salmonella Species Negative Shigella Species Negative Cryptosporidium (hominis, parvum) Negative Entamoeba histolytica Negative Giardia lamblia Negative Campylobacter Species Negative Yersinia enterocolitica Negative Vibrio species Negative Plesiomonas Shigelloides Negative Enterotoxigenic E. coli (ETEC) lt/st Negative Narrative: Testing methodology is an automated in vitro diagnostic test for the direct qualitative detection and differentiation of nucleic acids from enteric bacterial pathogens and enteric parasitic pathogens utilizing real-time polymerase chain reaction (PCR) for the amplification of relevant gene target DNA. The test utilizes fluorogenic gene-specific hybridization probes for the detection of the amplified DNA. CLOSTRIDIOIDES DIFFICILE DNA AMPLIFICATION - Normal Clostridioides difficile (Toxin A/B) Negative Narrative: Testing methodology is an in vitro diagnostic test for the direct, qualitative detection of the Clostridioides difficile Toxin A gene (tcdA) in unformed stool specimens of patients suspected of having Clostridioides difficile-infection (CDI). The [place] C. difficile Assay is intended for use as an aid in diagnosis of CDI. The assay utilizes helicase-dependent amplification (HDA) for the amplification of a highly conserved fragment of the Toxin A gene sequence. Testing methodology is an in vitro diagnostic test for the direct, qualitative detection of the Clostridioides difficile Toxin A gene (tcdA) in unformed stool specimens of patients suspected of having Clostridioides difficile-infection (CDI). The [place] C. difficile Assay is intended for use as an aid in diagnosis of CDI. The assay utilizes helicase-dependent amplification (HDA) for the amplification of a highly conserved fragment of the Toxin A gene sequence. PHOSPHORUS - Normal Phosphorus 3.3 CBC AND DIFFERENTIAL Narrative: The following orders were created for panel order CBC and differential. Procedure Abnormality Status --------- ------ CBC auto differential[[id number]] Abnormal Final result Please view results for these tests on the individual orders. CALPROTECTIN STOOL Calprotectin, Fecal 30 CBC AND DIFFERENTIAL Narrative: (more content not included)... Normal [facility] ENTERIC BACTERIA, LIMITED PA RASITE DNA PANELon 01-18-2023 CAMPYLOBACTER SPECIES Negative Normal Negative [facility] Comment on above: Order Comment: Testi ng methodology is an automated in vitro diagnostic test for the direct qualitative detection and differentiation of nucleic acids from enteric bacterial pathogens and enteric parasitic pathogens utilizing real-time polymerase chain reaction (PCR) for the amplification of relevant gene target DNA. The test utilizes fluorogenic gene-specific hybridization probes for the detection of the amplified DNA. Performed By: #### L [id number] #### [facility] ([facility]) [address] [place] [address] CRYPTOSPORIDIUM (HOMINIS AND PARVUM) Negative Normal Negative [facility] Comment on above: Order Comment: Testi ng methodology is an automated in vitro diagnostic test for the direct qualitative detection and differentiation of nucleic acids from enteric bacterial pathogens and enteric parasitic pathogens utilizing real-time polymerase chain reaction (PCR) for the amplification of relevant gene target DNA. The test utilizes fluorogenic gene-specific hybridization probes for the detection of the amplified DNA. Performed By: #### L [id number] #### [facility] ([facility] [address] [place] [address] ENTAMOEBA HISTOLYTICA Negative Normal Negative [facility] Comment on above: Order Comment: Testi ng methodology is an automated in vitro diagnostic test for the direct qualitative detection and differentiation of nucleic acids from enteric bacterial pathogens and enteric parasitic pathogens utilizing real-time polymerase chain reaction (PCR) for the amplification of relevant gene target DNA. The test utilizes fluorogenic gene-specific hybridization probes for the detection of the amplified DNA. Performed By: #### L [id number] #### [facility] ([facility]) [address] [place] [address] ENTEROTOXIGENIC E. COLI (ETEC) LT/ST Negative Normal Negative [facility] Comment on above: Order Comment: Testi ng methodology is an automated in vitro diagnostic test for the direct qualitative detection and differentiation of nucleic acids from enteric bacterial pathogens and enteric parasitic pathogens utilizing real-time polymerase chain reaction (PCR) for the amplification of relevant gene target DNA. The test utilizes fluorogenic gene-specific hybridization probes for the detection of the amplified DNA. Performed By: #### L [id number] #### [facility] ([facility] [address] [place] [address] GIARDIA LAMBLIA Negative Normal Negative [facility] Comment on above: Order Comment: Testi ng methodology is an automated in vitro diagnostic test for the direct qualitative detection and differentiation of nucleic acids from enteric bacterial pathogens and enteric parasitic pathogens utilizing real-time polymerase chain reaction (PCR) for the amplification of relevant gene target DNA. The test utilizes fluorogenic gene-specific hybridization probes for the detection of the amplified DNA. Performed By: #### L [id number] #### [facility] ([facility] [address] [place] [address] PLESIOMONAS SHIGELLOIDES Negative Normal Negative [facility] Comment on above: Order Comment: Testi ng methodology is an automated in vitro diagnostic test for the direct qualitative detection and differentiation of nucleic acids from enteric bacterial pathogens and enteric parasitic pathogens utilizing real-time polymerase chain reaction (PCR) for the amplification of relevant gene target DNA. The test utilizes fluorogenic gene-specific hybridization probes for the detection of the amplified DNA. Performed By: #### L [id number] #### [facility] [address] [place] [address] SALMONELLA SPECIES Negative Normal Negative [facility] Comment on above: Order Comment: Testi ng methodology is an automated in vitro diagnostic test for the direct qualitative detection and differentiation of nucleic acids from enteric bacterial pathogens and enteric parasitic pathogens utilizing real-time polymerase chain reaction (PCR) for the amplification of relevant gene target DNA. The test utilizes fluorogenic gene-specific hybridization probes for the detection of the amplified DNA. Performed By: #### L [id number] #### [facility] ([facility]) [address] [place] [address] SHIGA-LIKE TOXIN-PRODUCING E. COLI (STEC) STX1/STX2 Negative Normal Negative [facility] Comment on above: Order Comment: Testi ng methodology is an automated in vitro diagnostic test for the direct qualitative detection and differentiation of nucleic acids from enteric bacterial pathogens and enteric parasitic pathogens utilizing real-time polymerase chain reaction (PCR) for the amplification of relevant gene target DNA. The test utilizes fluorogenic gene-specific hybridization probes for the detection of the amplified DNA. Performed By: #### L [id number] #### [facility] ([facility]) [address] [place] [address] SHIGELLA SPECIES Negative Normal Negative [facility] Comment on above: Order Comment: Testi ng methodology is an automated in vitro diagnostic test for the direct qualitative detection and differentiation of nucleic acids from enteric bacterial pathogens and enteric parasitic pathogens utilizing real-time polymerase chain reaction (PCR) for the amplification of relevant gene target DNA. The test utilizes fluorogenic gene-specific hybridization probes for the detection of the amplified DNA. Performed By: #### L [id number] #### [facility] ([facility]) [address] [place] [address] VIBRIO SPECIES Negative Normal Negative [facility] Comment on above: Order Comment: Testi ng methodology is an automated in vitro diagnostic test for the direct qualitative detection and differentiation of nucleic acids from enteric bacterial pathogens and enteric parasitic pathogens utilizing real-time polymerase chain reaction (PCR) for the amplification of relevant gene target DNA. The test utilizes fluorogenic gene-specific hybridization probes for the detection of the amplified DNA. Performed By: #### L [id number] #### [facility] ([facility]) [address] [place] [address] YERSINIA ENTEROCOLITICA Negative Normal Negative [facility] Comment on above: Order Comment: Testi ng methodology is an automated in vitro diagnostic test for the direct qualitative detection and differentiation of nucleic acids from enteric bacterial pathogens and enteric parasitic pathogens utilizing real-time polymerase chain reaction (PCR) for the amplification of relevant gene target DNA. The test utilizes fluorogenic gene-specific hybridization probes for the detection of the amplified DNA. Performed By: #### L [id number] #### [facility] ([facility]) [address] [place] [id number] HISTOLOGY - TISSUE EXAMon LAB AP CASE REPORT Normal [facility] Comment on above: Result Comment: Surg ical Pathology Case: [id number] Authorizing Provider: Ignacia Graham MD Collected: 01/18/2023 1528 Ordering Location: [address] Surgery Received: 01/18/2023 1719 Pathologist: Homa Madera MD Specimens: A) - Small Intestine, Terminal Ileum, r/o ileitis B) - Large Intestine, Left/Descending Colon, r/o adenoma Performed By: #### L [id number] #### [facility] ([facility]) [address] [place] [address] LAB AP CLINICAL INFORMATION Order Diagnoses Normal [facility] Comment on above: Result Comment: R10. 9 - Abdominal pain [ICD-10-CM] R10.84 - Generalized abdominal pain [ICD-10-CM] Performed By: #### L [id number] #### [facility] ([facility]) [address] [place] [address] LAB AP GROSS DESCRIPTION Normal [facility] Comment on above: Result Comment: A. S mall Intestine, Terminal Ileum. The specimen is received in formalin labeled Constance Agata Burton, and r/o ileitis. It consists of 5 staley-pink irregular fragments of soft tissue measuring 0.6 x 0.5 x 0.3 cm in aggregate. The specimen is submitted in toto in 1 cassette. Viviane Tam, Pathologists' Circular Clerk student Hernan Killian Pathologists' Circular Clerk Sally. Large Intestine, Left/Descending Colon. The specimen is received in formalin labeled Constance Burton, and r/o adenoma. It consists of a 0.7 x 0.6 x 0.3 cm unoriented, staley-pink, polypoid EMR specimen which is pinned to a surgical board. The mucosal surface is smooth and glistening. The resection margin is inked black and the specimen is serially sectioned to reveal staley-white, granular cut surfaces. Each end is further bisected and the cut surface is inked red. The red aspect is to be embedded down by histology. The specimen is entirely submitted as follows: B1: End 1, bisected, perpendicular (red ink embedded down) B2: End 2, bisected, perpendicular (red ink embedded down) B3: Remaining section Viviane Tam Pathologists' Circular Clerk student Rachel Performed By: #### L [id number] #### [facility] ([facility]) [address] [place] [address] LAB AP MICROSCOPIC DESCRIPTION Microscopic examination performed. [facility] Comment on above: Performed By: #### L [id number] #### [facility] ([facility]) [address] [place] [address] LAB AP REPORT FINAL DIAGNOSIS NARRATIVE [facility] Comment on above: Result Comment: A. T erminal ileum, biopsy: - Small bowel mucosa with Peyer patch lymphoid tissue; no significant histologic abnormality. B. Left/descending colon, endoscopic mucosal resection: - Tubular adenoma; margins negative. Performed By: #### L [id number] #### [facility] ([facility]) [address] [place] [address] MAGNESIUMon 01-18-2023 Magnesium [Mass/Vol] 1.6 mg/dL Low 1.9-2.7 [facility] Comment on above: Performed By: #### L [id number] #### [facility] ([facility]) [address] [place] [address] PHOSPHORUSon 01-18-2023 Magnesium [Mass/Vol] 2.4 mg/dL Low 2.5-5.0 [facility] Comment on above: Performed By: #### L [id number] #### [facility] ([facility]) [address] [place] [address] 30on 01-17-2023 30 Daily Case Managemen t Update Multidisciplinary rounds have been completed. Barriers to Discharge: from [facility] with Abdomen pain. NPO. will hold NGT for now unless nausea or vomiting. from home Diet: Dietary Orders (From admission, onward) Start Ordered 01/18/23 0001 Diet NPO Diet effective midnight Comments: Sips with medications Question: Reason for NPO: Answer: Operation/Procedure 01/17/23 1453 01/17/23 0935 Clear Liquid Diet Diet effective now Question: Room Service? Answer: No 01/17/23 0934 Physician Expected Discharge Date: 01/20/2023 Discharge Delays: PT Six Click Score: OT Six Click Score: PT Recommendations: OT Recommendations: New Consults: Normal [facility] C-REACTIVE PROTEINon 023 C REACTIVE PROTEIN (MG/L) IN SER/PLAS 26.6 mg/L High 0.0-7.0 [facility] Comment on above: Performed By: #### L [id number] #### [facility] ([facility]) [address] [place] [address] CBC WITH AUTO DIFFERENTIALon 01-17-2023 Basophils (Bld) [#/Vol] 0.05 10*3/uL Normal 0.00-0.20 [facility] Comment on above: Performed By: #### L [id number] #### [facility] [address] [place] [address] Basophils/100 WBC (Bld) 0.4 % Normal 0.0-1.0 [facility] Comment on above: Performed By: #### L [id number] #### [facility] ([facility] [address] [facility] [address] Eosinophils (Bld) [#/Vol] 0.58 10*3/uL High 0.00-0.50 [facility] Comment on above: Performed By: #### L [id number] #### [facility] [address] [place] [address] Eosinophils/100 WBC (Bld) 4.8 % Normal 0.0-6.0 [facility] Comment on above: Performed By: #### L [id number] #### [facility] ([facility]) [address] [place] [address] Erythrocyte distribution width (RBC) [Ratio] 13.8 % Normal 11.5-15.0 [facility] Comment on above: Performed By: #### L [id number] #### [facility] ([facility]) [address] [place] [address] ERYTHROCYTE MEAN CORPUSCULAR HEMOGLOBIN CONCENTRATION (G/DL) BY AUTOMATED 34.4 g/dL Normal 32.0-35.0 [facility] Comment on above: Performed By: #### L [id number] #### [facility] ([facility]) [address] [place] [address] Hematocrit (Bld) [Volume fraction] 37.8 % Low 39.0-55.0 [facility] Comment on above: Performed By: #### L [id number] #### [facility] ([facility] [address] [place] [address] Hemoglobin (Bld) [Mass/Vol] 13.0 g/dL Normal 13.0-17.0 [facility] Comment on above: Performed By: #### L [id number] #### [facility] ([facility] [address] [place] [address] Immature granulocytes (Bld) [#/Vol] 0.05 10*3/uL Normal 0.00-0.20 [facility] Comment on above: Performed By: #### L [id number] #### [facility] ([facility]) [address] [place] [address] Immature granulocytes/100 WBC (Bld) 0.4 % Normal 0.0-1.0 [facility] Comment on above: Performed By: #### L [id number] #### [facility] ([facility]) [address] [place] [address] Lymphocytes (Bld) [#/Vol] 2.83 10*3/uL Normal 1.20-4.00 [facility] Comment on above: Performed By: #### L [id number] #### [facility] ([facility]) [address] [place] [address] Lymphocytes/100 WBC (Bld) 23.4 % Normal 20.0-45.0 [facility] Comment on above: Performed By: #### L [id number] #### [facility] ([facility]) [address] [place] [address] MCH (RBC) [Entitic mass] 30.4 pg Normal 27.0-33.0 [facility] Comment on above: Performed By: #### L [id number] #### [facility] ([facility]) [address] [place] [address] MCV (RBC) [Entitic vol] 88.5 fL Normal 82.0-98.0 [facility] Comment on above: Performed By: #### L [id number] #### [facility] ([facility]) [address] [place] [address] Monocytes (Bld) [#/Vol] 1.24 10*3/uL High 0.10-1.00 [facility] Comment on above: Performed By: #### L [id number] #### [facility] ([facility]) [address] [place] [address] Monocytes/100 WBC (Bld) 10.2 % Normal 5.0-12.0 [facility] Comment on above: Performed By: #### L [id number] #### [facility] [address] [place] [address] Neutrophils (Bld) [#/Vol] 7.36 10*3/uL Normal 1.60-7.60 [facility] Comment on above: Performed By: #### L [id number] #### [facility] ([facility]) [address] [place] [address] Neutrophils/100 WBC (Bld) 60.8 % Normal 40.0-72.0 [facility] Comment on above: Performed By: #### L [id number] #### [facility] ([facility]) [address] [place] [address] NRBC (PER 100 WBCS) BY AUTOMATED COUNT 0.0 % Normal 0 [facility] Comment on above: Performed By: #### L [id number] #### [facility] ([facility]) [address] [place] [address] PLATELETS (10*3/UL) IN BLOOD AUTOMATED COUNT 346 10*3/uL Normal 150-400 [facility] Comment on above: Performed By: #### L [id number] #### [facility] ([facility]) [address] [place] [address] RBC (Bld) [#/Vol] 4.27 10*6/uL Normal 4.20-5.70 [facility] Comment on above: Performed By: #### L [id number] #### [facility] ([facility]) [address] [place] [address] WBC (Bld) [#/Vol] 12.11 10*3/uL High 4.00-10.60 [facility] Comment on above: Performed By: #### L [id number] #### [facility] ([facility]) [address] [place] [address] COMPREHENSIVE METABOLIC PANE Marc 01-17-2023 Albumin [Mass/Vol] 4.2 g/dL Normal 3.5-5.7 [facility] Comment on above: Performed By: #### L [id number] #### [facility] ([facility]) [address] [place] [address] ALP [Catalytic activity/Vol] 59 U/L Normal 34-104 [facility] Comment on above: Performed By: #### L [id number] #### [facility] ([facility]) [address] [place] [address] ALT [Catalytic activity/Vol] 9 U/L Normal 7-52 [facility] Comment on above: Performed By: #### L [id number] #### [facility] ([facility]) [address] [place] [address] Anion gap [Moles/Vol] 8 mmol/L Normal 7-20 [facility] Comment on above: Performed By: #### L [id number] #### [facility] ([facility]) [address] [place] [address] AST [Catalytic activity/Vol] 10 U/L Low 13-39 [facility] Comment on above: Performed By: #### L [id number] #### [facility] ([facility]) [address] [place] [address] Bilirubin [Mass/Vol] 0.6 mg/dL Normal 0.3-1.0 [facility] Comment on above: Performed By: #### L [id number] #### [facility] ([facility]) [address] [place] [address] Calcium [Mass/Vol] 9.2 mg/dL Normal 8.6-10.3 [facility] Comment on above: Performed By: #### L [id number] #### [facility] ([facility]) [address] [place] [address] Chloride [Moles/Vol] 103 mmol/L Normal 98-107 [facility] Comment on above: Performed By: #### L [id number] #### [facility] ([facility]) [address] [place] [address] CO2 [Moles/Vol] 28 mmol/L Normal 21-31 [facility] Comment on above: Performed By: #### L [id number] #### [facility] ([facility]) [address] [place] [address] Creatinine [Mass/Vol] 0.81 mg/dL Normal 0.70-1.30 [facility] Comment on above: Performed By: #### L [id number] #### [facility] ([facility]) [address] [place] [address] GLOMERULAR FILTRATION RATE ML/MIN/1.73 SQ M.PREDICTED 105.4 mL/min/1.73m*2 Normal >60.0 [facility] Comment on above: Result Comment: The [facility]???s estimated glomerular filtration rate (eGFR) will no longer include consideration of race in its calculation. The National Kid[employer] Foundation???s eGFR Task Force developed new recommendations for the estimation of the glomerular filtration rate in the [place] They recommend immediate implementation of the new equation refit without the race variable in all laboratories because the calculation does not include race. In addition to not including race in the calculation and reporting, it included diversity in its development, and has acceptable performance characteristics and potential consequences that do not disproportionately affect any one group of individuals. Performed By: #### L [id number] #### [facility] ([facility]) [address] [place] [address] Glucose [Mass/Vol] 104 mg/dL High 70-100 [facility] Comment on above: Performed By: #### L [id number] #### [facility] ([facility]) [address] [place] [address] Potassium [Moles/Vol] 3.9 mmol/L Normal 3.5-5.1 [facility] Comment on above: Performed By: #### L [id number] #### [facility] ([facility]) [address] [place] [address] Protein [Mass/Vol] 6.9 g/dL Normal 6.0-8.3 [facility] Comment on above: Performed By: #### L [id number] #### [facility] ([facility]) [address] [place] [address] Sodium [Moles/Vol] 135 mmol/L Low 136-145 [facility] Comment on above: Performed By: #### L [id number] #### [facility] ([facility]) [address] [facility] [place] [address] Urea nitrogen [Mass/Vol] 9 mg/dL Normal 7-25 [facility] Comment on above: Performed By: #### L [id number] #### [facility] ([facility]) [address] [place] [address] UREA NITROGEN/CREATININE (MASS RATIO) IN SER/PLAS 11.1 Normal [facility] Comment on above: Performed By: #### L [id number] #### [facility] ([facility]) [address] [facility] [place] [address] CONSULTon 01-17-2023 CONSULT --- Attestation signed by Ignacia Graham MD at 01/18/2023 8:21 AM I personally saw and examined the patient on the same date of service as resident/fellow . I discussed the findings and therapeutic plan with the resident/fellow . I agree with the documentation. Abdominal pain with nausea and vomiting with a thickened the terminal ileum noted on CT scan leading to stenosis and dilation of the loops. Plan for colonoscopy with intubation of the terminal ileum to rule out Crohn's disease. Initial Gastroenterology/Hepato logy Consultation Note IDENTIFYING DATA PATIENT: Constance Burton ADMIT DATE: 01/17/2023 TIME OF EVALUATION: 01/17/2023 1:57 PM Reason for Consult: Concern for crohns HISTORY OF PRESENT ILLNESS Constance Burton is a 52 y.o. male with PMHx of HTN, GERD, and heart murmur presents as a transfer from [facility] for abdominal pain. Patient presented to [facility] on 01/16 complaining of abdominal pain, nausea and vomiting x2 days. Patient reports his also had symptoms around the same time so he assumed they both had the stomach flu, but her symptoms improved and his did not so he presented to ED. At [place] ED patient CT abdomen and pelvis revealed severe wall thickening of the terminal ileum and distal ileum with regions of stenosis and dilation concerning for inflammatory stricturing and mild associated obstruction, most likely related to an inflammatory or infectious etiology. Patient was found to have a wbc 17.7 at the outlying facility. Today patient states since his arrival to the [place] ED his symptoms have somewhat improved, currently endorsing mild abdominal pain. Patient reports intermittent nausea, denies vomiting. Patient reports soft formed brown stools but admits that patient had a liquid brown BM enroute to [facility]. Denies hematochezia and melena. Patient denies fevers, chills, chest pain. Pt states that he had an EGD in the past for abd pain, unsure when, with unremarkable findings. Pt has not had a CLN in the past. Previously a smoker, 1.5 ppd, quit several months ago. Pt does use marijuana and occasional alcohol use. No family history of GI disorders including malignancy. PAST MEDICAL, SURGICAL, FAMILY, and SOCIAL HISTORY Past Medical History: Diagnosis Date Heart valve disease Past Surgical History: Procedure Laterality Date NASAL FRACTURE SURGERY Family History Problem Relation Name Age of Onset Hypertension Mother Hyperlipidemia Mother Social History: Social History Tobacco Use Smoking status: Every Day Packs/day: 2.00 Types: Cigarettes Smokeless tobacco: Never Substance Use Topics Alcohol use: Yes Comment: occasional Drug use: Yes Types: Marijuana MEDICATIONS Allergies: Allergies Allergen Reactions Azithromycin GI intolerance Codeine GI intolerance Hydrocodone-Acetaminoph en GI intolerance Oxycodone-Acetaminophen GI intolerance Home Medications: Prior to Admission medications Medication Sig Start Date End Date Taking? Authorizing Provider cetirizine-pseudoephedr ine (ZyrTEC-D) 5-120 mg 12 hr tablet Take 1 tablet by mouth every 12 (twelve) hours if needed for allergies. Historical Provider, lansoprazole (Prevacid) [address] capsule take 1 capsule by mouth once daily BEFORE A MEAL 09/29/22 Historical Provider, lisinopril 10 mg tablet Take 1 tablet (10 mg) by mouth in the morning. 10/27/22 10/27/23 Jay Salas MD SUMAtriptan (Imitrex) 6 mg/0.5 mL injection INJECT 1 AUTOINJECTOR UNDER THE SKIN DIRECTED ONCE DAILY IF NEEDED 10/12/22 Historical Provider, Current Medications: enoxaparin, 40 mg, subcutaneous, Daily piperacillin-tazobactam , 3.375 g, intravenous, q8h polyethylene glycol-electrolytes, 4,000 mL, oral, Once PRNs: labetaloL, 10 mg, q6h PRN morphine, 2 mg, q4h PRN Or morphine, 4 mg, q4h PRN naloxone, 0.2 mg, PRN Or naloxone, 0.2 mg, PRN Or naloxone, 0.2 mg, PRN ondansetron, 4 mg, q6h PRN REVIEW OF SYSTEMS See HPI, otherwise ROS negative as below CONSTITUTIONAL: negative HEENT: negative RESPIRATORY: negative CARDIOVASCULAR: negative GASTROINTESTINAL: as in HPI GENITOURINARY: negative INTEGUMENT/BREAST: negative HEMATOLOGIC/LYMPHATIC: negative ALLERGIC/IMMUNOLOGIC: negative ENDOCRINE: negative MUSCULOSKELETAL: negative NEUROLOGICAL: negative BEHAVIOR/PSYCH: negative OBJECTIVE DATA Vitals: BP 136/85 (BP Location: Left arm, Patient Position: Lying) Pulse 79 Temp 37 ???C (98.6 ???F) (Oral) Resp 16 Ht 1.778 m (5' 10 ) Wt 77.9 kg (171 lb 11.8 oz) SpO2 97% BMI 24.64 kg/m??? GEN: alert and oriented x3, NAD CV: no edema visualized PULM: Respirations even and unlabored ABD: non distended, pt declined palpation NEURO: moves all 4 extremities spontan (more content not included)... Normal [facility] HPon 01-17-2023 --- Attestation signed by Daniela De Los Santos MD at 01/17/2023 1:17 PM I saw the above patient and repeated the above findings. The plan was discussed in detail. Will get GI on board, since imaging is suspicious for crohns. [facility] HISTORY AND PHYSICAL History Of Present Illness Constance Burton is a 52 y.o. male presenting as transfer from [facility] for abdominal pain. Past medical history of hypertension, GERD and heart murmur. Patient presented to [facility] on 01/16 complaining of abdominal pain, nausea and vomiting x2 days. Patient reports his was also sick around the same time so he assumed they both had the flu however presented to ED when his symptoms did not ayla after a couple of days. AT [place] ED patient underwent CT abdomen and pelvis finding severe wall thickening of the terminal ileum and distal ileum with regions of stenosis and dilation concerning for inflammatory stricturing and mild associated obstruction, most likely related to an inflammatory or infectious etiology. CT also noted mild pulmonary interstitial edema. Pertinent labs at outside hospital include wbc 17.7, hemoglobin 13.9, AST 10, ALT 19, lipase 40. Patient assessed on 6AB. Patient reports abdominal pain with intermittent nausea/vomiting since Sunday 01/14. Patient reports abdominal pain had worsened in intensity leading to presentation at [place] ED. However patient states since his arrival to ED he has been feeling much better, currently endorsing extremely mild abdominal pain. Patient denies current nausea, vomiting or abdominal distension. Patient reports he has been having regular bowel movements. Patient denies fevers, chills, chest pain, diarrhea, dysuria. Patient reports he was previously a smoker, 1.5 ppd, however quit several months ago. Patient reports occasional alcohol use. Past Medical History He has a past medical history of Heart valve disease. Surgical History He has a past surgical history that includes Nasal fracture surgery. Social History He reports that he has been smoking cigarettes. He has been smoking an average of 2 packs per day. He has never used smokeless tobacco. He reports current alcohol use. He reports current drug use. Drug: Marijuana. Family History Family History Problem Relation Name Age of Onset Hypertension Mother Hyperlipidemia Mother Allergies Codeine, Percocet [oxycodone-acetaminophe n], and Vicodin [hydrocodone-acetaminop hen] Medications Medications Prior to Admission Medication Sig Dispense Refill Last Dose cetirizine-pseudoephedr ine (ZyrTEC-D) 5-120 mg 12 hr tablet Take 1 tablet by mouth every 12 (twelve) hours if needed for allergies. Past Week lansoprazole (Prevacid) [address] capsule take 1 capsule by mouth once daily BEFORE A MEAL 01/16/2023 lisinopril 10 mg tablet Take 1 tablet (10 mg) by mouth in the morning. 90 tablet 3 01/16/2023 SUMAtriptan (Imitrex) 6 mg/0.5 mL injection INJECT 1 AUTOINJECTOR UNDER THE SKIN DIRECTED ONCE DAILY IF NEEDED More than a month Review of Systems Constitutional: Negative for chills, fatigue and fever. Eyes: Negative for visual disturbance. Respiratory: Negative for shortness of breath. Cardiovascular: Negative for chest pain. Gastrointestinal: Positive for abdominal pain. Negative for diarrhea, nausea and vomiting. Genitourinary: Negative for dysuria and hematuria. Musculoskeletal: Negative for back pain and neck pain. Skin: Negative for color change and rash. Neurological: Negative for dizziness, syncope, weakness and numbness. Psychiatric/Behavioral: Negative for agitation and confusion. Last Recorded Vitals Visit Vitals BP 127/81 (BP Location: Left arm, Patient Position: Sitting) Pulse 84 Temp 36.6 ???C (97.8 ???F) (Temporal) Resp 18 Ht 1.778 m (5' 10 ) Wt 77.9 kg (171 lb 11.8 oz) SpO2 98% BMI 24.64 kg/m??? Smoking Status Every Day BSA 1.96 m??? Physical Exam Constitutional: General: He is not in acute distress. Appearance: He is not toxic-appearing. HENT: Head: Normocephalic and atraumatic. Mouth/Throat: Mouth: Mucous membranes are moist. Pharynx: Oropharynx is clear. Eyes: Extraocular Movements: Extraocular movements intact. Pupils: Pupils are equal, round, and reactive to light. Cardiovascular: Rate and Rhythm: Normal rate and regular rhythm. Pulses: Normal pulses. Pulmonary: Effort: Pulmonary effort is normal. No respiratory distress. Abdominal: General: Bowel sounds are normal. There is no distension. Palpations: Abdomen is soft. Tenderness: There is abdominal tenderness (mild diffuse tenderness to palpation). There is no guarding or rebound. Musculoskeletal: Right lower leg: No edema. Left lower leg: No edema. Skin: Genera (more content not included)... Normal [facility] MAGNESIUMon 01-17-2023 Magnesium [Mass/Vol] 1.7 mg/dL Low 1.9-2.7 [facility] Comment on above: Performed By: #### L [id number] #### [facility] [address] [place] [address] NURSNOTEon 01-17-2023 NURSNOTE Patient [facility] via stretcher from [facility]. Normal [facility] PHOSPHORUSon 01-17-2023 Magnesium [Mass/Vol] 3.3 mg/dL Normal 2.5-5.0 [facility] Comment on above: Performed By: #### L [id number] #### [facility] [address] [place] [address] Office Visiton 10-27-2022 Follow-up visit [id number] Ismael Burton R 1970 M Date Provider Department Center 10/27/2022 JAY JOHNSTON CODIE Pastor Family History Problem Relation Age of Onset Hypertension Mother Hyperlipidemia Mother Family Status - Relation Status Age at Mother Level of Service:28159 MA OFFICE/OUTPATIENT NEW MODERATE MDM 45-59 MINUTES Normal [facility] Orders Onlyon 10-27-2022 Orders Only [id number] Ismael Burton R 1970 M Date Provider Department Center 10/27/2022 FATEMEH OCASIO CODIE Pastor Family History Problem Relation Age of Onset Hypertension Mother Hyperlipidemia Mother Family Status - Relation Status Age at Mother Normal [facility] ECH echo transthoracicon ECH echo transthoracic [facility] [place] [address] Echocardiogram Signed Patient: Constance Burton MR#: [id number] 3 : 1970 Acct:[id number] Age/Sex: 52 / M ADM Date: 10/07/22 Loc: Room: Type: [facility] Attending Dr: Michelle Lance SOFTWARE CLIENT ARCHITECT-C Ordering Provider: Michelle Lance CNP Date of Service: 10/07/22/ ECH/ECH echo transthoracic: MURMUR Copies to: ANDRZEJ Hurley MD Sue Weight: 180 lb Performed By: DAVIDA Payne BSA: 2.0 m2 BP: 138/86 mmHg HR: 92 Reason For Study: MURMUR History: Smoker Interpretation Summary The left ventricle is moderately dilated. Ejection Fraction = 55-60%. There is left ventricular diastolic dysfunction. The left atrium appears moderately dilated. There is mild to moderate mitral regurgitation. There is trace tricuspid regurgitation. Procedure/Quality: A two-dimensional transthoracic echocardiogram with color flow and Doppler was performed. The study was technically good in quality. Left Ventricle: The left ventricle is moderately dilated. The left ventricular thickness is normal. Ejection Fraction = 55-60%. There is left ventricular diastolic dysfunction. No left ventricular thrombus or mass is seen. Left Atrium: The left atrium appears moderately dilated. The atrial septum appears normal. Right Atrium: The right atrium appears normal in size. Right Ventricle: The right ventricular size, thickness and function are normal. Aortic Valve: The aortic valve is mildly sclerotic. Mitral Valve: The mitral valve is mildly sclerotic. There is mild to moderate mitral regurgitation. Tricuspid Valve: The tricuspid valve is normal. There is trace tricuspid regurgitation. Pulmonic Valve: The pulmonic valve is not well visualized. Arteries: The aortic root is normal size. Mildly dilated ascending aorta. Pericardium/Pleura: No pericardial effusion seen. There is no pleural effusion. IVC/Hepatic Viens: Mildly dilated inferior vena cava. Measurements with Normals IVSd: 0.95 cm (0.7-1.1 cm)LVIDd: 6.4 cm (3.7-5.4 cm) LVPWd: 1.0 cm (0.7-1.1 cm)LVIDs: 4.4 cm (2.3-3.6 cm) LA dimension: 5.2 cm (2.3-4.0 cm)Ao root diam: 3.5 cm(2.0-3.6 cm) asc Aorta Diam: 3.9 cm(2.1-3.4cm) Doppler with Normals RVSP(TR): 34.7 mmHg (18-35mmHg) MV E max dionte: 166.0 cm/sec(0.8-1.3m/s) MV A max dionte: 178.1 cm/sec(0.0-0.0m/s) MV E/A: 0.93 (<1.5) MMode/2D Measurements Calculations RVDd: 2.5 cm FS: 30.6 % Ao root area: 9.8 wg2UICl ap4: 8.4 cm TAPSE: 2.5 cm EDV(Teich): EDV(MOD-sp4): RV S Dionte: 204.9 ml 128.0 ml 24.5 cm/sec ESV(Teich): LVLs ap4: 6.8 cm 88.0 ml ESV(MOD-sp4): EF(Teich): 57.0 % 54.9 ml EF(MOD-sp4): 57.1 % __ SV(MOD-sp4): LAV(MOD-sp4): LA A2 area: 26.7 cm2 RA Volume: 15.7 ml 73.1 ml 71.9 ml LAV(MOD-sp2): LA A4 area: 22.7 cm2 99.2 ml LA length (vol): 5.9 cm LA vol: 86.9 ml LA vol index: 43.5 ml/m2 Doppler Measurements Calculations MV V2 max: E/E' lat: 18.2 MV P1/2t max dionte: MR max dionte: 202.5 cm/sec E/E' med: 20.6 205.0 cm/sec 642.3 cm/sec MV max PG: MV P1/2t: 59.1 msec MR max P.0 mmHg 165.3 mmHg MV V2 mean: MVA(P1/2t): 3.7 cm2 145.2 cm/sec MV dec slope: MV mean P cm/sec2 9.5 mmHg MV V2 VTI: 50.2 cm __ TV max PG: TR max dionte: 30.0 mmHg 272.7 cm/sec TR max P.7 mmHg RAP systole: 5.0 mmHg Transcribed By: SHALINI Performed At: 10/07/22 0758 Signed By: Ariel Doan MD 10/07/22 1617 Normal [facility] Encounters Encounter Date Encounter Type Care Provider Facility Start: 01-18-2023 Evaluation and management of inpatient ONEAL ELDRIDGE [facility] Start: 01-17-2023 End: 01-18-2023 Evaluation and management of inpatient LLOYD GALINDO [facility] Start: 10-27-2022 End: 10-27-2022 ambulatory JAY SALAS [facility] Start: 10-10-2022 ambulatory Facility:U Start: 10-07-2022 End: 10-07-2022 ambulatory Michelle Lance Facility:[facility] Start: 10-07-2022 ambulatory Facility:[id number] Start: 06-26-2022 End: 06-26-2022 ambulatory MIRIAM MILTON . Facility: Payers Date Payer Category Payer Self-pay 2022 Unknown [id number] 1970 Unknown [id number] 1970 Unknown [id number] 1960 Self-pay [id number] Unknown [id number] Clinical Note 01-18-2023 Note Date & Type Note Facility 01-18-2023 Note Pt requesting to go home, no DC orders. Surgery up at bedside for discussion/education with pt post colonoscopy. Discussed staying in case of complications tonight. Pt has now ate a bowl of soup and requesting to go again. Surgery contacted. [facility] Clinical Note 01-18-2023 Note Date & Type Note Facility 01-18-2023 Note Patient: Constance charles Procedure Summary Date: 01/18/23 Room / Location: [facility] Endoscopy Anesthesia Start: 1459 Anesthesia Stop: 1559 Procedure: DIAGNOSTIC COLONOSCOPY Diagnosis: Abdominal pain Scheduled Providers: Oneal Eldridge MD; DIONNE Sena; Ignacia Graham MD Responsible Provider: Jayce Hernandez MD Anesthesia Type: MAC ASA Status: 3 Anesthesia Type: MAC Vitals Value Taken Time BP 130/85 01/18/23 1610 Temp 36.6 ???C (97.9 ???F) 01/18/23 1555 Pulse 68 01/18/23 1610 Resp 15 01/18/23 1610 SpO2 99 % 01/18/23 1610 Anesthesia Post Evaluation Patient location during evaluation: PACU Patient participation: complete - patient participated Level of consciousness: awake and alert Pain score: 0 Pain management: adequate Multimodal analgesia pain management approach Airway patency: patent Two or more strategies used to mitigate risk of obstructive sleep apnea Cardiovascular status: hemodynamically stable Respiratory status: room air and nonlabored ventilation Hydration status: euvolemic Patient is hemodynamically stable and is able to be discharged from PACU per anesthesia protocol. There were no known notable events for this encounter. [facility] Progress note 01-18-2023 Note Date & Type Note Facility 01-18-2023 Note ------ Attestation signed by Shreyas Rodriguez MD at 01/18/2023 9:06 PM I have reviewed and supervised the patient visit with Chun Marsh MD. I discussed the findings and therapeutic plan with Chun Marsh MD. I agree with the documentation. Colonoscopy today. Pending results ------ [facility] General Surgery DAILY PROGRESS NOTE Subjective No acute events overnight. Hemodynamically stable. Afebrile. Saturating well on room air. Denies nausea, vomiting, fevers, chills, chest pain, and shortness of breath. Scheduled to undergo c-scope today with GI Objective Vitals: Vitals: 01/18/23 0323 BP: 126/82 Pulse: 91 Resp: Temp: SpO2: 96% I/O last 3 completed shifts: In: 1150 (14.8 mL/kg) [I.V.:1000 (12.8 mL/kg); IV Piggyback:150] Out: - (0 mL/kg) Weight: 77.9 kg I/O this shift: In: 100 [IV Piggyback:100] Out: - Physical Exam General Appearance: AAOx3, NAD Neck: Trachea Midline, No jugular venous distension Pulmonary: Unlabored breathing. No expiratory wheeze. Cardiac: Regular rate and rhythm Abdomen: Soft, minimal global tenderness, non-distended, no signs of peritonitis Extremity: No edema B/L upper and lower extremities Skin: warm and dry without rash Eyes: no scleral icterus Labs: Results from last 7 days Lab Units 01/17/23 0554 WBC AUTO 10*3/uL 12.11* HEMOGLOBIN g/dL 13.0 HEMATOCRIT % 37.8* PLATELETS AUTO 10*3/uL 346 Results from last 7 days Lab Units 01/17/23 0554 SODIUM mmol/L 135* POTASSIUM mmol/L 3.9 CO2 mmol/L 28 BUN mg/dL 9 CREATININE mg/dL 0.81 Medications: piperacillin-tazobactam, 3.375 g, intravenous, q8h lactated Ringer's, 75 mL/hr, Last Rate: 75 mL/hr (01/17/23 3727) Imaging: ECG 12 lead Normal sinus rhythm Minimal voltage criteria for LVH, may be normal variant ( R in aVL ) Borderline ECG No previous ECGs available Confirmed by Lázaro Plaza ([id number]) on 01/17/2023 8:23:05 AM XR transfer of outside films This order has been auto-finalized and does not contain a result. Assessment/Plan Constance Burton is a 52 year old male presenting as transfer from [facility] for abdominal pain. 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 He is scheduled to undergo c-scope today with GI. No acute surgical intervention indicated at this time Monitor intakes and outputs Strict electrolyte replacement with goals of magnesium >2, phosphorus >3, and potassium >4 Pain and nausea medications as needed Continue care per primary Surgery will continue to follow Await results of c-scope Chun Marsh MD General Surgery Resident, PGY-1 [facility] Clinical Note 01-17-2023 Note Date & Type Note Facility 01-17-2023 Note Patient: Constance charles Procedure Information Date/Time: 01/18/23 1545 Scheduled providers: Oneal Eldridge MD; DIONNE Sena; Ignacia Graham MD Procedure: DIAGNOSTIC COLONOSCOPY Location: [facility] Invasive [facility] Relevant Problems Cardio tolerates >4 METs without chest pain, SOB (+) Hypertension (+) Nonrheumatic mitral (valve) insufficiency GI (+) GERD (gastroesophageal reflux disease) Pulmonary Daily marijuana smoker Smoked for approximately 30 years. Quit approximately 1 month ago Clinical information reviewed: Physical Exam Airway Mallampati: II TM distance: >3 FB Neck ROM: full Cardiovascular - normal exam Comments: Murmur present Dental - normal exam Comments: Complete upper and lower edentulous. Upper dentures. Pulmonary - normal exam Abdominal - normal exam Cardiovascular ECHO 10/07/22 - LVEF 55-60% - Left ventricular mild diastolic dysfunction - Left atrium moderately dilated - Mild to moderate mitral regurgitation - trace tricuspid regurgitation Anesthesia Plan ASA 3 MAC The patient is not a current smoker. Patient did not smoke on day of procedure. intravenous induction Anesthetic plan and risks discussed with patient. Use of blood products discussed with patient who consented to blood products. Plan discussed with attending, CAA and resident. Additional Equipment Requests [facility] Progress note 01-17-2023 Note Date & Type Note Facility 01-17-2023 Note 01/17/23 1000 Referral Data Referral Source Physician Referral Reason Other (Comment) (Substance Use) Patient Information Primary Caregiver Self Accompanied by/Relationship Juliana Yarsani/Cultural Factors Patient denied Activities of Daily Living Assistive Device Not applicable Living Arrangement (Current/Prior to Hospitalization) Private residence Ambulation Independent Dressing Independent Feeding Independent Behavior Oriented Communication Can write;Talks;Understands speaking;Understands Georgian;Reads Income Information 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 No Patient's goal for discharge Patient would like to return home Does the patient need discharge transport arranged? No (Patient's to transport home) steel construction worker met with patient bedside for initial assessment and to address SW consult placed by physician. Patient's , Juliana was also present at bedside. Patient was pleasant and cooperative and alert and oriented x4. Patient admits to marijuana use but denies needing CALLY resources. Patient is employed and plans to return to work when medically cleared to do so. He denies any issues obtaining basic necessities and reports independently maintaining his ADLs before current hospitalization. Patient and his did express concerns about patient not having any medical insurance. Patient and his were provided resources about [facility]'s patient financial and medical assistance programs. Patient did not express any additional questions or concerns at this time. He and his were encouraged to reach out to [employer] / Dispatcher Chief [employer] Slurry if any needs were to arise during his stay. They were agreeable to this. [facility] Progress note 10-27-2022 Note Date & Type Note Facility 10-27-2022 Note Cardiology Clinic No te Chief Complaint: new referral HPI: Constance Burton is a 52 y.o. male with no significant cardiac history who was referred to Cardiology clinic for evaluation of mitral regurgitation. Patient recently had an echo completed for murmur, and was noted to have mild to moderate mitral regurgitation with a moderately dilated LV and an EF 55-60%. He was referred to cardiology for this. Patient adamantly denies any cardiac complaints or concerns. Patient denies any chest pain or shortness of breath. Patient denies any lower extremity edema, orthopnea, or proximal nocturnal dyspnea. No near-syncope or syncope. No dizziness or lightheadedness. Patient denies any previous history of CVA, PVD, DM, HTN, Depressed LVEF, and CAD. He smokes approximately 2 packs per day. He also uses marijuana on occasion. Cardiology ROS: GENERAL: Denies fever, chills, night sweats, weight loss. HEENT: Denies changes in vision, photophobia, changes in hearing, epistaxis, oral bleeding. CARDIOVASCULAR: Denies chest pain, exertional dyspnea, orthopnea/PND, lower extremity edema, palpitations, lightheadedness/dizziness. RESPIRATORY: Denies SOB, coughing, wheezing GI: Denies abdominal pain, nausea/vomiting, heartburn, melena/hematochezia. RENAL: Denies dysuria, hematuria, flank pain. MSK: Denies muscle weakness/pain, arthralgias/joint pain. NEUROLOGIC: Denies LOC, weakness, numbness, headaches. SKIN: Denies abnormal rashes or bleeding. PSYCH: Denies significant anxiety, depression, sleep disturbances. Past Medical History He has a past medical history of Heart valve disease. Surgical History He has a past surgical history that includes Nasal fracture surgery. Social History He reports that he has been smoking cigarettes. He has been smoking an average of 2 packs per day. He has never used smokeless tobacco. He reports current alcohol use. He reports current drug use. Drug: Marijuana. Family History Family History Problem Relation Name Age of Onset Hypertension Mother Hyperlipidemia Mother Medications Current Outpatient Medications on File Prior to Visit Medication Sig Dispense Refill lansoprazole (Prevacid) [address] capsule take 1 capsule by mouth once daily BEFORE A MEAL SUMAtriptan (Imitrex) 6 mg/0.5 mL injection INJECT 1 AUTOINJECTOR UNDER THE SKIN DIRECTED ONCE DAILY IF NEEDED No current facility-administered medications on file prior to visit. Allergies Codeine, Percocet [oxycodone-acetaminophen], and Vicodin [hydrocodone-acetaminophen] Physical Exam VITAL SIGNS: BP 136/83 (BP Location: Left arm, Patient Position: Sitting) Pulse 97 Ht 1.778 m (5' 10 ) Wt 82.6 kg (182 lb) SpO2 96% BMI 26.11 kg/m??? Constitutional: Well developed, Well nourished, No acute distress, Non-toxic appearance. HENT: Normocephalic, Atraumatic, Bilateral external ears have normal appearance, Nose appears normal, nares are patent. Eyes: PERRLA, EOMI, Conjunctiva normal, No discharge. Neck: Normal range of motion, No tenderness, Supple, No stridor. No cervical lymphadenopathy noted. Cardiovascular: Normal heart rate, Normal rhythm, holosystolic murmur, No rubs, No gallops. Thorax & Lungs: Normal breath sounds, No respiratory distress, No wheezing, No chest tenderness to palpation. Abdomen: Bowel sounds normal, Soft, Nontender, No masses, No pulsatile masses. Skin: Warm, Dry, No erythema, No rash. Back: No tenderness, No CVA tenderness. Extremities: Intact distal pulses, No edema, No tenderness, No cyanosis, No clubbing. Musculoskeletal: Grossly normal strength in extremities Neurologic: Alert & oriented x 3, no gross focal neurological deficits Psychiatric: Affect normal, Judgment normal, Mood normal. EKG results: No results found for this or any previous visit (from the past 4464 hour(s)). Impression: -Mild to moderate MR -Moderately dilated LV -HTN -Tobacco abuse -Tace TR Plan: -Patient denies any cardiac symptoms. He declines any invasive evaluation including Cath or LUCIO at this time. He is not on any medications for HTN. Will start lisinopril 10 mg daily. Check BMP in 7-10 days. -Will repeat echo in 6 months for re-evaluation of valve. Patient is instructed to contact cardiology if he develops any symptoms. -I spent over 6 minutes counseling the patient on the importance of smoking cessation. I emphasized the risk of continued smoking. I offered the patient various resources. Patient respectfully declines at this time. -I counseled him on the importance of alcohol cessation. He voices understanding. -Optimize medical management -Aggressive risk factor modification -Plan of care discussed with patient. All questions were answered. Patient voices understanding and is agreeable with current plan. -Patient was educated on red flag symptoms. Strict return precautions were provided. Patient verbalizes understanding -Follow-up in cardiology (more content not included)... [facility] Progress note 10-27-2022 Note Date & Type Note Facility 10-27-2022 Note New patient here to establish care. Ref from Michelle Lance CNP for mitral valve regurgitation on recent echo. Smokes 2 PPD and marijuana daily. Denies chest pain, SOB, palpitations, and lightheadedness. Review of Systems Respiratory: Positive for cough, snoring and wheezing. Musculoskeletal: Positive for arthritis, back pain, joint pain and myalgias. All other systems reviewed and are negative. [facility] Summary Purpose Family History No Family History Records FoundNo Family History Records FoundNo Family History Records FoundNo Family History Records Found Advance Directives No Advanced Directives Records FoundNo Advanced Directives Records FoundNo Advanced Directives Records FoundNo Advanced Directives Records Found Additional Source Comments (unrecognized sect ion and content) No Status Records FoundNo Status Records FoundNo Status Records FoundNo Status Records Found INFORMATION SOURCE (unrecogn ized section and content) DATE CREATED AUTHOR 06/29/2022 [facility] DATE CREATED AUTHOR AUTHOR'S ORGANIZ ATION 10/12/2022 [facility] DATE CREATED AUTHOR AUTHOR'S ORGANIZ ATION 10/15/2022 [facility] DATE CREATED AUTHOR AUTHOR'S ORGANIZ ATION 02/10/2023 [facility] FOR RECORDS PERTAINING TO PATIENTS WHO ARE OR HAVE BEEN ENROLLED IN A CHEMICAL DEPENDENCY/SUBSTANCEABUSE PROGRAM, SOME INFORMATION MAY BE OMITTED. This clinical summary was aggregated from multiple sources. Caution should be exercised in using it in the provision of clinical care. This summary normalizes information from multiple sources, and as a consequence, information in this document may materially change the coding, format and clinical context of patient data. In addition, data may be omitted in some cases. CLINICAL DECISIONS SHOULD BE BASED ON THE PRIMARY CLINICAL RECORDS. [employer] provides no warranty or guarantee of the accuracy or completeness of information in this document.
[2024-10-11 09:03] LABS: Hematocrit 35.2 % (42.0-54.0); Hemoglobin 11.9 g/dL (14.0-18.0); Immature Granulocytes Abs Auto 0.01 10^3/uL (0.00-0.03); Immature Granulocytes Pct Auto 0.1 % (0.0-0.5); Lymphocytes Absolute Auto 1.7 10^3/uL (1.2-3.8); Mean Corpuscular HGB Conc 33.8 g/dL (29.9-35.2); Mean Corpuscular Hemoglobin 30.5 pg (25.9-34.0); Mean Corpuscular Volume 90.3 fL (80.0-94.0); Platelet Count 298 10^3/uL (150-450); Red Blood Count 3.90 10^6/uL (4.70-6.10); White Blood Count 7.4 10^3/uL (4.0-11.0)
[2024-10-11 09:35] LABS: Alanine Aminotransferase 16 U/L (16-63); Albumin Globulin Ratio 1.0; Albumin Level 3.7 g/dL (3.4-5.0); Alkaline Phosphatase 57 U/L (46-116); Anion Gap 10.2; Aspartate Amino Transferase 12 U/L (15-37); Blood Urea Nitrogen 11.0 mg/dL (7.0-18.0); Calcium 8.9 mg/dL (8.5-10.1); Carbon Dioxide 29.1 mmol/L (21.0-32.0); Chloride 102 mmol/L (98-107); Cholesterol 215 mg/dL (<=200); Estimated GFR (African America >60 (>=60 mL/min/1.73m^2); Estimated GFR (Non-African Ame >60 (>=60 mL/min/1.73m^2); Free T3 2.72 pg/mL (2.18-3.98); Globulin 3.8 g/dL; Glucose 97 mg/dL (74-106); HDL Cholesterol 30 mg/dL (40-60); Lipase 65.0 U/L (16.0-77.0); Potassium 4.3 mmol/L (3.5-5.1); Sodium 137 mmol/L (136-145); Thyroid Stimulating Hormone 0.649 uIU/mL (0.358-3.740); Total Protein 7.5 g/dL (6.4-8.2); Triglycerides 174 mg/dL (<=150); Uric Acid 4.9 mg/dL (3.5-7.2); VLDL CHOLESTEROL 34.8 mg/dL
== END 2024-10-11 08:11 | disposition home or self-care (01) ==
LOC: LAB 08:14
PROVIDERS: PCP Nurse Practitioner Family; Visit Provider Nurse Practitioner Family
DX: Z00.00 Encounter for general adult medical examination without abnormal findings (principal); Z12.5 Encounter for screening for malignant neoplasm of prostate
CPT/HCPCS: 36415; 80053; 80061; 83036; 83525; 83690; 84436; 84443; 84481; 84550; 85025; G0103